=== PATIENT | male | born 1995 | race African-American/Black ===

== ENCOUNTER 2018-12-05 22:32 | Inpatient (IN) ==
[2018-12-05 22:56] LABS: BASO# 0.02 X1000 (0.0-0.2); BASO% 0.3 % (0.0-0.8); EOS# 0.14 X1000 (0.0-0.7); EOS% 2.4 % (0.0-10.0); HEMATOCRIT 39.5 % (42.0-52.0); HEMOGLOBIN 13.7 g/dL (14.0-18.0); LYMPH# 2.38 X1000 (1.2-3.4); LYMPH% 40.1 % (20.5-51.1); MCH 30.9 PG (27-31); MCHC 34.7 g/dL (33-37); MCV 89.2 FL (81-99); MONO# 0.55 X1000 (0.11-0.59); MONO% 9.3 % (1.7-9.3); MPV 11.6 FL (7.4-10.4); NEUT# 2.85 X1000 (1.4-6.5); NEUT% 47.9 % (42.2-75.2); PLT 184 X1000 (130-400); RBC 4.43 XMIL (4.7-6.1); RDW 12.8 % (11.5-14.5); URINE SOURCE CATH; WBC 5.94 X1000 (4.8-10.8)
[2018-12-05 23:07] LABS: BILIRUBIN URINE NEGATIVE (NEGATIVE); BLOOD URINE NEGATIVE (NEGATIVE); COLOR YELLOW; GLUCOSE URINE NEGATIVE (NEGATIVE); KETONE URINE NEGATIVE (NEGATIVE); LEUKOCYTES URINE NEGATIVE (NEGATIVE); NITRITE URINE NEGATIVE (NEGATIVE); PROTEIN URINE NEGATIVE (NEGATIVE); SP GRAVITY URINE 1.027; TURBIDITY URINE CLEAR (CLEAR); UROBILINOGEN URINE NORMAL (NORMAL)
[2018-12-05 23:09] LABS: UR EPITHELIAL CELLS <10 /HPF (<10); URINE BACTERIA NEGATIVE /HPF; URINE RBC <10 /HPF (<10); URINE WBC <10 /HPF (<10)
[2018-12-05] MEDS ORDERED: NS 1,000 ML IV ONE (23:09)
[2018-12-05 23:19] LABS: UR AMPHETAMINES QUAL NONE DETECTED (NONE DETECT); UR BARBITUATES QUAL NONE DETECTED (NONE DETECT); UR BENZODIAZEPIN QUAL PRESUMPTIVE POSITIVE (NONE DETECT); UR CANNABINOIDS QUAL PRESUMPTIVE POSITIVE (NONE DETECT); UR COCAINE QUAL NONE DETECTED (NONE DETECT); UR METHADONE QUAL NONE DETECTED (NONE DETECT); UR OPIATES QUAL PRESUMPTIVE POSITIVE (NONE DETECT); UR OXYCODONE QUAL NONE DETECTED (NONE DETECT); UR PCP QUAL NONE DETECTED (NONE DETECT)
[2018-12-05 23:22] LABS: AGAP 12; ALB/GLOB RATIO 1.5; ALBUMIN 4.3 g/dL (3.5-5.0); ALKALINE PHOSPHATASE 53 U/L (32-122); BUN 13 mg/dL (8-22); CALCIUM 8.8 mg/dL (8.8-10.2); CHLORIDE 104 mmol/L (98-107); COSMO 282; ESTIMATED GFR > 60; GLUCOSE 101 mg/dL (70-104); GOT 37 U/L (10-34); GPT 14 U/L (10-44); POTASSIUM 4.8 mmol/L (3.5-5.1); SODIUM 141 mmol/L (136-145); TCO2 25 mmol/L (25-35); TOTAL BILIRUBIN 0.34 mg/dL (0.20-1.00); TOTAL PROTEIN 7.1 g/dL (6.3-8.3)
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
[2018-12-06] MEDS ORDERED: KEFZOL 1 GM/D5W 1 GM/50 ML IVPB IV ONE (02:14)
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
[2018-12-06] MEDS ORDERED: ZOFRAN IV PRN (03:16)
[2018-12-06] MEDS ORDERED: NS 1,000 ML IV SCH (03:16)
--- NOTE | 2018-12-06 05:25 | EKG Report ---
Test Performed on : 12/06/2018 05:07:51 AM Test Reason : Sinus Kaiden Blood Pressure : / mmHG Vent. Rate : 047 BPM Atrial Rate : 047 BPM P-R Int : 188 ms QRS Dur : 100 ms QT Int : 442 ms P-R-T Axes : 076 071 064 degrees QTc Int : 391 ms Sinus bradycardia. Otherwise normal ECG No previous ECGs available Confirmed by Arsenio Arshad MD ([id number]) on 12/08/2018 12:40:58 PM
[2018-12-06 06:39] LABS: CK INDEX 0.5 (0.0-2.5); CK-MB 1.85 ng/mL (0.0-5.0)
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
[2018-12-06 08:22] LABS: HEMATOCRIT 38.8 % (42.0-52.0); HEMOGLOBIN 13.4 g/dL (14.0-18.0); MCH 31.6 PG (27-31); MCHC 34.5 g/dL (33-37); MCV 91.5 FL (81-99); MPV 11.4 FL (7.4-10.4); RBC 4.24 XMIL (4.7-6.1); RDW 12.9 % (11.5-14.5); WBC 7.82 X1000 (4.8-10.8)
[2018-12-06 08:32] VITALS: BP 129/77
[2018-12-06 08:37] LABS: AGAP 11; BUN 9 mg/dL (8-22); CALCIUM 8.5 mg/dL (8.8-10.2); CHLORIDE 105 mmol/L (98-107); COSMO 278; ESTIMATED GFR > 60; GLUCOSE 91 mg/dL (70-104); SODIUM 140 mmol/L (136-145); TCO2 24 mmol/L (25-35)
--- NOTE | 2018-12-06 08:57 | Diag Imaging Result Doc PS360 ---
EXAM: CT HEAD/C-SPINE W/O CONTRAST 12/06/2018 HISTORY: ams TECHNIQUE: This exam was performed using automated exposure control, adjustment of mA or kV according to patient size, and/or use of iterative reconstruction technique. COMMENT: There is no evidence of mass effect, bleed, or abnormal extra-axial fluid collection. The visualized paranasal sinuses are clear. The calvarium is intact. Cervical spine: There is anterior osteophyte formation at C4-5. No evidence of acute fracture or subluxation is present. There is no evidence of spinal or foraminal stenosis. The visualized portion of the chest is unremarkable. IMPRESSION: No evidence of acute disease. Electronically signed by Dean Quezada 12/06/2018 8:55 AM
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
== END 2018-12-06 15:09 | disposition home or self-care (01) | DRG 93 ==
LOC: ED 22:32 → MERGE 12-06 02:33 → 4N 12-06 02:33 → SUATTDRO 12-06 02:33 → 3S 12-06 05:49
PROVIDERS: ATTEND Internal Medicine